=== PATIENT | male | born 1965 | race African-American/Black ===

== ENCOUNTER 2016-06-15 16:07 | Emergency (ER) | payer OTHER ==
[~2016-06-15] VITALS: Ht 177.8 cm; Wt 104.0 kg
[2016-06-15] MEDS ORDERED: FLEXERIL10 MG PO ×2 (17:08→17:26)
[2016-06-15] MEDS ORDERED: MEDROL DOSEPAK4 MG PO ×2 (17:08→17:26)
[2016-06-15 17:47] VITALS: BP 141/80
== END 2016-06-15 17:48 | disposition home or self-care (01) ==
LOC: EME 16:07
DX: M54.32 Sciatica, left side (principal)
CPT/HCPCS: 99281; 99284; J3010; J7512

== ENCOUNTER 2016-10-21 17:45 | Observation (INO) | payer OTHER ==
[~2016-10-21] VITALS: Ht 177.8 cm; Wt 104.8 kg
[~2016-10-21 17:45] MED LIST: FLEXERIL10 MG PO; MEDROL DOSEPAK4 MG PO
[2016-10-21 18:54] LABS: HEMATOCRIT 41.6 % (38.0-50.0); MCH 26.2 PG (29.0-34.0); MCHC 33.2 G/DL (30.0-36.0); MCV 78.9 FL (86-99); MEAN PLAT.VOLUME 10.4 uM^3 (9.0-12.4); PLATELET COUNT 339 K/uL (156-360); RBC DIS.WIDTH-CV 12.5 % (11.8-14.6); RBC DIS.WIDTH-SD 35.4 % (39-53); RED BLOOD COUNT 5.27 M/uL (4.00-5.50); WHITE BLOOD COUNT 7.8 K/uL (4.1-10.2)
[2016-10-21 19:02] LABS: CHLORIDE 106 mEq/L (99-109); SODIUM 142 mEq/L (136-147)
[2016-10-21 19:04] LABS: GLUCOSE 122 mg/dL (70-99)
[2016-10-21 19:05] LABS: ANION GAP 15 MEQ/L (2-14)
[2016-10-21 19:07] LABS: GFR ESTIMATE (CALCULATED) > 59 mL/min/
[2016-10-21 19:08] LABS: UREA NITROGEN (BUN) 15 mg/dL (9-23)
[2016-10-21 19:14] LABS: TROP-I INTERPRETATION NEGATIVE; TROPONIN-I 0.02 ng/mL (0.0-0.30)
[2016-10-21 22:27] LABS: TROP-I INTERPRETATION NEGATIVE; TROPONIN-I 0.02 ng/mL (0.0-0.30)
[2016-10-21] MEDS ORDERED: ADVIL,NUPRIN,M200 MG PO (23:30)
[2016-10-22 00:58] VITALS: BP 118/73
[2016-10-22 04:05] LABS: HEMATOCRIT 37.6 % (38.0-50.0); MCH 25.8 PG (29.0-34.0); MCHC 32.7 G/DL (30.0-36.0); MEAN PLAT.VOLUME 10.4 uM^3 (9.0-12.4); PLATELET COUNT 285 K/uL (156-360); RBC DIS.WIDTH-CV 12.4 % (11.8-14.6); RBC DIS.WIDTH-SD 35.7 % (39-53); RED BLOOD COUNT 4.76 M/uL (4.00-5.50); WHITE BLOOD COUNT 5.9 K/uL (4.1-10.2)
[2016-10-22 04:19] VITALS: BP 122/70
[2016-10-22 04:21] LABS: CHLORIDE 108 mEq/L (99-109); POTASSIUM 3.8 mEq/L (3.7-5.4); SODIUM 141 mEq/L (136-147)
[2016-10-22 04:23] LABS: GLUCOSE 117 mg/dL (70-99)
[2016-10-22 04:24] LABS: ANION GAP 11 MEQ/L (2-14)
[2016-10-22 04:25] LABS: TOTAL BILIRUBIN 0.8 mg/dL (0.0-1.0)
[2016-10-22 04:26] LABS: ALKALINE PHOSPHATASE 74 IU/L (3-129)
[2016-10-22 04:27] LABS: GFR ESTIMATE (CALCULATED) > 59 mL/min/
[2016-10-22 04:28] LABS: D-DIMER ELISA < 150.00 ng/mLDDU (<230); UREA NITROGEN (BUN) 12 mg/dL (9-23)
[2016-10-22 04:33] LABS: TROP-I INTERPRETATION NEGATIVE; TROPONIN-I 0.02 ng/mL (0.0-0.30)
[2016-10-22 04:57] LABS: HDL CHOLESTEROL 44 MG/DL (Desirable>=40); LDL CHOLESTEROL 152 mg/dL (Desirable<100); NON-HDL CHOLESTEROL 166 mg/dL (Desirable<160); TOTAL CHOLESTEROL 210 mg/dL (Desirable<200); TRIGLYCERIDES 69 MG/DL (Normal: <150)
[2016-10-22 08:30] VITALS: BP 138/95
[2016-10-22 11:18] VITALS: BP 109/75
[2016-10-22 11:19] LABS: TROP-I INTERPRETATION NEGATIVE; TROPONIN-I 0.02 ng/mL (0.0-0.30)
[2016-10-22] MEDS ORDERED: PRAVACHOL40 MG PO (15:06)
== END 2016-10-22 15:59 | disposition home or self-care (01) ==
LOC: EME 17:45 → 5WEST 23:37 → EDOF 23:37 → ENRESERV 23:41 → 5WEST 10-22 00:49
PROVIDERS: Internal Medicine; Physician Assistant
DX: R07.89 Other chest pain (principal); K21.9 Gastro-esophageal reflux disease without esophagitis; E78.5 Hyperlipidemia, unspecified
CPT/HCPCS: 71020; 80048; 80053; 80061; 84484; 85027; 85379; 93005; 99281; 99285; G0378; J1644